=== PATIENT | male | born 1950 | race Caucasian/White ===

== ENCOUNTER 2016-12-24 14:50 | Emergency (ER) | payer BC ==
[~2016-12-24] VITALS: Ht 172.7 cm; Wt 81.0 kg
[~2016-12-24 14:50] MED LIST: ALPR-411 PO; ASPI81TA28 PO; BUPR200T2 PO; CALCTAB5 PO; CARB25TA12 PO; CARB50TA3 PO; CITA20TA9 PO; COEN1CAP PO; FLAXSEED PO; MULT-506 PO; PROBCAP PO; PYRI100T4 PO; ROPI3TAB PO; ZOLP10TA PO; [UNRECOGNIZED DRUG - OTHER] PO
[2016-12-24 15:05] VITALS: TEMP 36.8; Ht 172.7 cm; Wt 81.0 kg
[2016-12-24 15:23] LABS: URINE APPEARANCE CLOUDY (CLEAR); URINE BILIRUBIN NEG (NEG); URINE COLOR DK YELLOW; URINE NITRITE NEG (NEG); URINE PH 6.5 (4.5-7.5); URINE SPECIFIC GRAVITY 1.024 (1.000-1.030); UROBILINOGEN NEG (NEG); ZZUR CULT IF INDIC CLEAN CATCH NO
[2016-12-24 15:31] LABS: MANUAL MICROSCOPIC REQUIRED? NO; REVIEW REQ? NO
[2016-12-24 15:54] LABS: BENZODIAZEPINE, URINE NEG (NEG); COCAINE,URINE NEG (NEG); PHENCYCLIDINE, URINE NEG (NEG)
[2016-12-24 16:07] LABS: BASO ABS # 0.06 K/uL (0-0.2); COMPLETE YES; EOS % 4.9 %; HEMATOCRIT 46.7 % (42-52); IG% 0.2 %; LYMPH % 14.3 %; MEAN CELL VOLUME 88.6 fL (80-100); MEAN CORPUSCULAR HEMOGLOBIN 29.2 pg (25-34); MEAN PLATELET VOLUME 10.2 fL (7.4-10.4); MONO % 10.3 %; NEUT % 69.3 %; PLATELET COUNT 187 K/uL (130-400); RED BLOOD COUNT 5.27 M/uL (4.7-6.1); WHITE BLOOD COUNT 6.31 K/uL (4.8-10.8)
[2016-12-24] MEDS ORDERED: CARB25TA14 PO (16:11)
[2016-12-24] MEDS ORDERED: ROPI5TAB9 PO (16:11)
[2016-12-24 16:28] LABS: BUN/CREATININE RATIO 18.8 (10-20); CALCIUM 8.5 mg/dl (8.5-10.1); CREATININE 0.74 mg/dl (0.60-1.40); POTASSIUM 3.6 mmol/L (3.5-5.1)
[2016-12-24 16:39] LABS: THYROID STIMULATING HORMONE 0.707 uIu/ml (0.300-4.500)
[2016-12-24 16:48] LABS: ACETAMINOPHEN < 2 ug/ml (10-30)
[2016-12-24 20:10] VITALS: BP 92/54; PULSE 67; O2SAT 95
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
[2016-12-31 10:40] LABS: SYNTHETIC CANNABINOIDS QL URIN NEGATIVE (Negative)
== END 2016-12-24 20:11 | disposition home or self-care (01) ==
LOC: EDBD 14:50 → C.EDA 14:52
DX: Z00.8 Encounter for other general examination (principal); F39 Unspecified mood [affective] disorder; R45.4 Irritability and anger; G20 Parkinson's disease

== ENCOUNTER 2017-03-27 00:29 | Emergency (ER) | payer BC ==
[~2017-03-27] VITALS: Ht 172.7 cm; Wt 79.7 kg
[~2017-03-27 00:29] MED LIST changes: -ALPR-411 PO; -BUPR200T2 PO; -CALCTAB5 PO; -CARB25TA12 PO; +CARB25TA14 PO; -CARB50TA3 PO; -CITA20TA9 PO; -FLAXSEED PO; -PROBCAP PO; -PYRI100T4 PO; -ROPI3TAB PO; +ROPI5TAB9 PO; -ZOLP10TA PO; -[UNRECOGNIZED DRUG - OTHER] PO
[2017-03-27 00:36] VITALS: TEMP 36.4; Ht 172.7 cm; Wt 79.7 kg
[2017-03-27] MEDS ORDERED: SODIUM CHLORIDE 0.9% 1000ML 1,000 ML IV STA ×2 (00:38→02:06)
--- NOTE | 2017-03-27 00:43 | EMERGENCY ROOM VISIT NOTE ---
History Report prepared by Adam: Donavon Benton Under the Supervision of: Dr. Patrick Calix M.D. First contact with patient: 00:32 Chief Complaint: FALL Stated Complaint: MULTIPLE FALLS History of Present Illness The patient is a 67 year old male with Parkinson's who presents to the Emergency Room via ELS with complaints of multiple falls that have occurred over the past few weeks. Per EMS, the patient has been having a lot of falls, especially over the past week. He initially was confused and having hallucinations, but is now alert and oriented and answering questions now. His glucose was 106. He was noted to be diaphoretic. The patient states that he feels great currently, but has not been having much of an appetite recently. He says that he did not hit his head on the falls, but did hit his back and has current buttock pain. He denies any chest pain, headaches, or shortness of breath. The patient adds that prior to arrival, he was having hallucinations where he thought people were in his room, and he thought there was a football game going on that is not going on until tomorrow. He notes that he was able to get himself up after his falls. Source of History: patient, EMS Onset: Over past few weeks Position: other (global - falls) Symptom Intensity: multiple falls Associated Symptoms: + diaphoresis, No headache, No chest pain, No SOB Note: Associated symptoms: Buttock pain. Hallucinations prior to arrival. Denies hitting head on falls. Review of Systems See HPI for pertinent positives & negatives. A total of 10 systems reviewed and were otherwise negative. Past Medical & Surgical Medical Problems: (1) Benign essential hypertension (2) Chronic back pain (3) GAIT INSTABILITY (4) INTERMITTENT CONFUSION (5) LEFT GROIN PAIN (6) Parkinson's disease Family History No pertinent family history Social History Smoking Status: Never Smoker Alcohol Use: occasionally Drug Use: none Marital Status: Occupation Status: employed Current/Historical Medications Scheduled Aspirin (Aspirin Ec), 81 MG PO DAILY Carbidopa/Levodopa (Sinemet 25MG/250MG), 1.5 TAB PO QID Coenzyme Q10 (Ubidecarenone) (Co Q10), 1 CAP PO BID Multivitamin (Multivitamin), 1 TAB PO DAILY Ropinirole HCl (Ropinirole HCl), 5 MG PO TIDM Allergies Coded Allergies: No Known Allergies (Unverified , 12/24/16) Physical Exam Vital Signs Date Time Temp Pulse Resp B/P (MAP) Pulse Ox O2 Delivery O2 Flow Rate FiO2 03/27/17 05:21 71 18 126/87 96 03/27/17 04:24 64 20 128/72 94 Room Air 03/27/17 03:29 73 20 106/79 96 Room Air 03/27/17 02:46 71 20 119/69 95 Room Air 03/27/17 01:31 77 20 117/66 95 Room Air 03/27/17 00:50 74 03/27/17 00:36 36.4 76 20 110/70 97 Room Air Physical Exam GENERAL: Patient is dehydrated appearing and in minimal distress. HEENT: No acute trauma, normocephalic atraumatic, mucous membranes dry, no nasal congestion, no scleral icterus. NECK: No stridor, no adenopathy, no meningismus, trachea is midline. LUNGS: No dyspnea. Clear to auscultation and equal bilaterally. No wheeze, no rhonchi. HEART: Regular rate and rhythm. No murmurs, rubs, gallops appreciated. ABDOMEN: Soft, nontender, bowel sounds positive, no masses appreciated, no peritonitis. BACK: No midline tenderness, no CVA tenderness EXTREMITIES: Normal motion all extremities, no cyanosis, no edema. NEUROLOGIC: Awake and answering questions. Chronic movement consistent with severe Parkinsonism. Mild left lower facial droop, easily overcome with voluntary muscles. SKIN: Poor skin turgor. No rash, no jaundice, no diaphoresis. Medical Decision & Procedures ER Provider Diagnostic Interpretation: Radiology results and stated below per my review and radiologist interpretation: CT HEAD: Degraded by motion. 3 apparent mixed attenuation, although predominantly low to isodense, left parietal extra axial hemorrhage measuring about 1 cm in some regions. Approximately 3 mm of [id number] midline shift. Involutional changes. Radiologist: Sarina Oakes M.D. X ray results are stated below per my interpretation: Chest: 1 view: No infiltrate, no effusion, normal cardiac border. Pelvis X-ray: 1 view: No fracture, no dislocation, has lumbar hardware in place with old compression fractures. Extensive arthritic changes. Laboratory Results 03/27/17 00:06 Red Blood Count 5.04, Mean Corpuscular Volume 90.5, Mean Corpuscular Hemoglobin 29.2, Mean Corpuscular Hemoglobin Concent 32.2, Mean Platelet Volume 10.1, Neutrophils (%) (Auto) 60.3, Lymphocytes (%) (Auto) 18.1, Monocytes (%) (Auto) 12.0, Eosinophils (%) (Auto) 8.4, Basophils (%) (Auto) 1.0, Neutrophils # (Auto ) 3.07, Lymphocytes # (Auto) 0.92, Monocytes # (Auto) 0.61, Eosinophils # (Auto ) 0.43, Basophils # (Auto) 0.05 03/27/17 00:06 Test 03/27/17 00:06 03/27/17 01:36 White Blood Count 5.09 K/uL (4.8-10.8) Red Blood Count 5.04 M/uL (4.7-6.1) Hemoglobin 14.7 g/dL (14.0-18.0) Hematocrit 45.6 % (42-52) Mean Corpuscular Volume 90.5 fL (80-100) Mean Corpuscular Hemoglobin 29.2 pg (25-34) Mean Corpuscular Hemoglobin Concent 32.2 g/dl (32-36) Platelet Count 183 K/uL (130-400) Mean Platelet Volume 10.1 fL (7.4-10.4) Neutrophils (%) (Auto) 60.3 % Lymphocytes (%) (Auto) 18.1 % Monocytes (%) (Auto) 12.0 % Eosinophils (%) (Auto) 8.4 % Basophils (%) (Auto) 1.0 % Neutrophils # (Auto) 3.07 K/uL (1.4-6.5) Lymphocytes # (Auto) 0.92 K/uL (1.2-3.4) Monocytes # (Auto) 0.61 K/uL (0.11-0.59) Eosinophils # (Auto) 0.43 K/uL (0-0.5) Basophils # (Auto) 0.05 K/uL (0-0.2) RDW Standard Deviation 41.5 fL (36.4-46.3) RDW Coefficient of Variation 12.5 % (11.5-14.5) Immature Granulocyte % (Auto) 0.2 % Immature Granulocyte # (Auto) 0.01 K/uL (0.00-0.02) Prothrombin Time 10.7 SECONDS (9.0-12.0) Prothromb Time International Ratio 1.0 (0.9-1.1) Activated Partial Thromboplast Time 29.2 SECONDS (21.0-31.0) Partial Thromboplastin Ratio 1.1 Anion Gap 6.0 mmol/L (3-11) Est Creatinine Clear Calc Drug Dose 97.6 ml/min Estimated GFR () 112.7 Estimated GFR (Non- 97.2 BUN/Creatinine Ratio 20.5 (10-20) Calcium Level 8.6 mg/dl (8.5-10.1) Phosphorus Level 3.6 mg/dl (2.5-4.9) Magnesium Level 2.2 mg/dl (1.8-2.4) Total Bilirubin 0.6 mg/dl (0.2-1) Direct Bilirubin mg/dl (0-0.2) Aspartate Amino Transf (AST/SGOT) 24 U/L (15-37) Alanine Aminotransferase (ALT/SGPT) 8 U/L (12-78) Alkaline Phosphatase 74 U/L (45-117) Total Creatine Kinase 206 U/L (39-308) Creatine Kinase MB 5.1 ng/ml (0.5-3.6) Creatine Kinase MB Ratio 2.5 (0-3.0) Troponin I < 0.015 ng/ml (0-0.045) Total Protein 6.8 gm/dl (6.4-8.2) Albumin 3.3 gm/dl (3.4-5.0) Lipase 1280 U/L (73-393) Urine Color YELLOW Urine Appearance CLEAR (CLEAR) Urine pH 5.0 (4.5-7.5) Urine Specific [place] 1.019 (1.000-1.030) Urine Protein NEG (NEG) Urine Glucose (UA) NEG (NEG) Urine Ketones TRACE (NEG) Urine Occult Blood TRACE (NEG) Urine Nitrite NEG (NEG) Urine Bilirubin NEG (NEG) Urine Urobilinogen NEG (NEG) Urine Leukocyte Esterase SMALL (NEG) Urine WBC (Auto) 5-10 /hpf (0-5) Urine RBC (Auto) 5-10 /hpf (0-4) Urine Hyaline Casts (Auto) 5-10 /lpf (0-5) Urine Epithelial Cells (Auto) 10-20 /lpf (0-5) Urine Bacteria (Auto) NEG (NEG) Medications Administered Medications (Trade) Dose Ordered Sig/Jason Route Start Time Stop Time Status Last Admin Dose Admin Sodium Chloride 1,000 ml @ 999 mls/hr Q1H1M STAT IV 03/27/17 00:38 03/27/17 01:38 DC 03/27/17 00:38 999 MLS/HR Sodium Chloride 1,000 ml @ 125 mls/hr Q8H STAT IV 03/27/17 02:06 03/27/17 06:18 DC 03/27/17 02:06 125 MLS/HR ECG Indication: weakness Rate (beats per minute): 79 Rhythm: sinus rhythm, other (poor baseline) Findings: 1st degree AV block, other (nonspecific intraventricular block) ED Course 0033: The patient was evaluated in room C5. A complete history and physical exam was performed. 0038: Ordered NSS 1000 ml @ 999 mls/hr IV. 0123: I reevaluated and updated the patient, and he wants to be transferred to [place]. 0130 :I reevaluated the patient and did a fast ultrasound and placed him in a cervical collar. Fast was negative for any blood. 0143: I discussed the patient with Dr. Renee - [place] trauma surgeon - he accepts the patient in transfer. 0206: I reevaluated the patient and I do not appreciate any further facial droop. He still appears dehydrated. The patient verbally expressed understanding and agreement of the treatment plan. The patient will be evaluated for transferred to [facility]. Ordered NSS 1000 ml @ 125 mls/hr IV. 0305: [place] is bringing an ambulance here. 0402: I reevaluated the patient and he is feeling fine with no concerns. He will now be transferred to [place]. Medical Decision Differential: Sepsis, Infectious (UTI/Pneumonia/Meningitis/etc), Metabolic/ Electrolyte Abnormality, Cardiac, Hepatic, Endocrine, Toxicologic, Neurologic, amongst other pathologies entertained. 67 yr old male arrives via EMS after falling several times at home. Story a bit confusing but seems his left a day or so ago and he has been getting weaker. He is having some hallucinations which he admits. He is severely dehydrated and I suspect he has not been eating/caring for himself. Exam with mild left lower facial droop easily overcome with voluntary muscles, as well as his chronic Parkinson issues. Initially suspected dehydration vs stroke, but broad differential kept and thus sent to CT for head given his falls though he denies hitting his head. CT with subdural and midline shift. On return patient placed in cervical collar, though given his constant movement I do not feel that we would get very good CT imaging of cervical spine to clear, thus will leave collar even though no complaint neck pain (primarily because head bleed). On asa 81mg only and no other blood thinners. Bedside FAST limited to motion though no clear evidence of free fluid. CXR and Pelv xray without injury appreciated. Soft abdomen throughout stay. He is actually looking much improved with initial IV fluid bolus and thus will continue gentle hydration from here out. Modestly elevated Lipase of uncertain etiology as no TTP and no abdominal pain. Notes some low back soreness post fall the other day though this doesn't seem consistent with pancreatitis. May just be dehydration and poor oral intake as cause? Other labs look OK and EKG without acute ischemia. No clear findings of infection. Patient stable, no further neuro issues and interacting normally for himself. He will be transferred to [place] at his request as it is trauma center that we are not. [place] sent their ground crew as out ambulance leaving concurrently with another trauma and other local ambulances busy with football weekend. Head Trauma GCS Score: 15 Medication Reconcilliation Current Medication List: was personally reviewed by me Blood Pressure Screening Patient's blood pressure: Normal blood pressure Consults Time Called: 0140 Consulting Physician: Dr. Thelma Lindsay trauma surgeon Returned Call: 0143 I discussed the patient with Dr. Thelma Lindsay trauma surgeon - he accepts the patient in transfer. Impression Primary Impression: Subdural hematoma Additional Impressions: Midline shift of brain due to hematoma Fall Dehydration Elevated lipase Critical Care I have personally spent greater than 45 minutes of critical care time in the direct management of this patient. This was a life/limb threatening event. This includes time spent evaluating patient, direct bedside care, chart review, placing orders, interpretation of diagnostic studies, discussion with consultants, patient, and family members, as well as other required patient management activities. This 45 minutes is in excess of all separately billable procedures. Scribe Attestation The scribe's documentation has been prepared under my direction and personally reviewed by me in its entirety. I confirm that the note above accurately reflects all work, treatment, procedures, and medical decision making performed by me. Departure Information Dispostion Transfer Acute Care Facility (to [facility]) Referrals Nir Kimbrough D.O.Int.Med. (PCP) Patient Instructions [facility] Problem Qualifiers
[2017-03-27 00:55] LABS: BASO ABS # 0.05 K/uL (0-0.2); COMPLETE YES; EOS % 8.4 %; HEMATOCRIT 45.6 % (42-52); IG% 0.2 %; LYMPH % 18.1 %; LYMPH ABS # 0.92 K/uL (1.2-3.4); MEAN CELL VOLUME 90.5 fL (80-100); MEAN CORPUSCULAR HEMOGLOBIN 29.2 pg (25-34); MEAN CORPUSCULAR HGB CONC 32.2 g/dl (32-36); MEAN PLATELET VOLUME 10.1 fL (7.4-10.4); NEUT % 60.3 %; PLATELET COUNT 183 K/uL (130-400); RED BLOOD COUNT 5.04 M/uL (4.7-6.1); WHITE BLOOD COUNT 5.09 K/uL (4.8-10.8)
[2017-03-27 01:10] LABS: PARTIAL THROMBOPLASTIN RATIO 1.1; PROTHROMBIN TIME (PATIENT) 10.7 SECONDS (9.0-12.0)
[2017-03-27 01:29] LABS: ALKALINE PHOSPHATASE 74 U/L (45-117); ALT/SGPT 8 U/L (12-78); AST/SGOT 24 U/L (15-37); BLOOD UREA NITROGEN 15 mg/dl (7-18); BUN/CREATININE RATIO 20.5 (10-20); CALCIUM 8.6 mg/dl (8.5-10.1); CARBON DIOXIDE 27 mmol/L (21-32); CHLORIDE 108 mmol/L (98-107); CKMB/CK RATIO 2.5 (0-3.0); CREATININE 0.72 mg/dl (0.60-1.40); GLUCOSE 88 mg/dl (70-99); MAGNESIUM 2.2 mg/dl (1.8-2.4); PHOSPHORUS 3.6 mg/dl (2.5-4.9); POTASSIUM 3.8 mmol/L (3.5-5.1); SODIUM 141 mmol/L (136-145)
[2017-03-27 02:15] LABS: MANUAL MICROSCOPIC REQUIRED? NO; REVIEW REQ? NO; URINE APPEARANCE CLEAR (CLEAR); URINE BILIRUBIN NEG (NEG); URINE COLOR YELLOW; URINE NITRITE NEG (NEG); URINE SPECIFIC GRAVITY 1.019 (1.000-1.030); UROBILINOGEN NEG (NEG); ZZUR CULT IF INDIC CLEAN CATCH NO
[2017-03-27 05:21] VITALS: BP 126/87; PULSE 71; O2SAT 96
--- NOTE | 2017-03-27 06:44 | DIAGNOSTIC IMAGING REPORT ---
CHEST ONE VIEW PORTABLE CLINICAL HISTORY: Generalized Weakness TRAUMA COMPARISON STUDY: 03/29/2011 FINDINGS: The cardiac and mediastinal contours remain stable. There is aortic tortuosity/ectasia. There is no focal pulmonary consolidation. There is no failure. There is mild chronic interstitial thickening.[ IMPRESSION: AP portable study. No acute findings. Electronically signed by: Carlos Eduardo Gray M.D. 03/27/2017 6:43 AM Dictated Date/Time: 03/27/2017 6:42 AM
--- NOTE | 2017-03-27 06:48 | DIAGNOSTIC IMAGING REPORT ---
CT HEAD WITHOUT CONTRAST (CT) CLINICAL HISTORY: Multiple falls. Generalized weakness. COMPARISON STUDY: 03/29/2011 TECHNIQUE: Axial CT of the brain is performed from the vertex to the skull base. IV contrast was not administered for this examination. A dose lowering technique was utilized adhering to the principles of ALARA. CT DOSE: 1382.10 mGy.cm FINDINGS: The study is degraded by motion artifact. There is a suspected 12 mm isodense left posterior parietal extra-axial hemorrhage. This is likely subdural. There is 2 mm of left to right midline shift. There is no CT evidence of acute cortical infarction. There is no parenchymal hemorrhage. There are patchy white matter hypodensities likely on a small vessel basis. There is no evidence of pathologic ventricular dilatation. There is no evidence of acute sinusitis IMPRESSION: 1. Technically limited study degraded by motion 2. 12 mm isodense left parietal subdural hematoma Electronically signed by: Carlos Eduardo Gray M.D. 03/27/2017 6:47 AM Dictated Date/Time: 03/27/2017 6:43 AM
--- NOTE | 2017-03-27 06:51 | DIAGNOSTIC IMAGING REPORT ---
PELVIS 1 OR 2 VIEW ROUTINE CLINICAL HISTORY: Pelvic pain status post trauma COMPARISON STUDY: No previous studies for comparison. FINDINGS: There are postsurgical changes in the lumbar spine. There are extensive degenerative changes within the visualized portions of the lumbar spine. There is no SI joint diastases. There is no symphysis diastases. No acute pelvic fractures are visualized. There is bony spurring arising from the iliac wings. There is spurring arising from the left greater trochanter. IMPRESSION: No acute fractures. Electronically signed by: Carlos Eduardo Gray M.D. 03/27/2017 6:50 AM Dictated Date/Time: 03/27/2017 6:49 AM
== END 2017-03-27 05:21 | disposition short-term general hospital (02) ==
LOC: EDBD 00:29 → C.EDC 00:30
DX: S06.5X0A Traumatic subdural hemorrhage without loss of consciousness, initial encounter (principal); G93.5 Compression of brain; W19.XXXA Unspecified fall, initial encounter; Y92.9 Unspecified place or not applicable; E86.0 Dehydration; R74.8 Abnormal levels of other serum enzymes; I10 Essential (primary) hypertension; R41.0 Disorientation, unspecified; G20 Parkinson's disease; Z79.82 Long term (current) use of aspirin; Z79.899 Other long term (current) drug therapy

== ENCOUNTER 2017-07-09 18:04 | Emergency (ER) | payer OTHER ==
[~2017-07-09] VITALS: Ht 172.7 cm; Wt 90.3 kg
[2017-07-09 18:19] VITALS: Ht 172.7 cm; Wt 90.3 kg
[2017-07-09] MEDS ORDERED: MoRPHine SULFATE 4 MG/ML 1 ML CARP\\VIAL IM STA (18:23)
--- NOTE | 2017-07-09 18:28 | EMERGENCY ROOM VISIT NOTE ---
History Report prepared by Adam: Frances Puga Under the Supervision of: Dr. Hemanth Kyle D.O. 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 He was trying to walk to the bathroom from his bedroom. He lost his balance and fell. He reports right rib pain. He denies any head injury. He notes that he has been unable to use his right arm for a couple months. He denies any history of stroke. He has a history of Parkinson's disease. The patient normally uses a walker to ambulate. Source of History: patient Onset: CAMP ATTENDANT Position: other (global) Quality: other (fall) Timing: other (episodic) Associated Symptoms: No headache Note: Pt reports right rib pain. Review of Systems See HPI for pertinent positives & negatives. A total of 10 systems reviewed and were otherwise negative. Past Medical & Surgical Medical Problems: (1) Benign essential hypertension (2) Chronic back pain (3) GAIT INSTABILITY (4) INTERMITTENT CONFUSION (5) LEFT GROIN PAIN (6) Parkinson's disease Family History No pertinent family history Social History Smoking Status: Former Smoker Drug Use: none Marital Status: Current/Historical Medications Scheduled Bupropion (Wellbutrin Sr), 150 MG PO DAILY Carbidopa/Levodopa (Sinemet 25MG/250MG), 1 TAB PO QID Docusate Sodium (Docusate Sodium), 1 CAP PO BID Polyethylene Glycol 3350 (Miralax), 17 GM PO DAILY Senna/Docusate Sod (Senokot S), 1 TAB PO DAILY Zolpidem Tartrate (Ambien), 5 MG PO HS Scheduled PRN Acetaminophen (Tylenol), 500 MG PO Q4H PRN for Pain or Fever Bisacodyl (Bisac-Evac), 10 MG PO DAILY PRN for Constipation Cyclobenzaprine Hcl (Flexeril), 5 MG PO TID PRN for Muscle Spasms Magnesium Hydroxide (Milk Of Magnesia), 30 ML PO DAILY PRN for Constipation Oxycodone Immediate Rel Tab (Roxicodone Ir), 5 MG PO Q4H PRN for Severe Pain Sodium Phosphate/Biphosphate (Fleet Enema), 1 EA OR DAILY PRN for Constipation Allergies Coded Allergies: No Known Allergies (Unverified , 12/24/16) Physical Exam Vital Signs Date Time Temp Pulse Resp B/P (MAP) Pulse Ox O2 Delivery O2 Flow Rate FiO2 07/09/17 18:19 95 18 152/87 98 Room Air Physical Exam CONSTITUTIONAL/VITAL SIGNS: Reviewed / noted above. GENERAL: Non-toxic in appearance. INTEGUMENTARY: Warm, dry, and Rodman. HEAD: Normocephalic. EYES: without scleral icterus or trauma. ENT/OROPHARYNX: clear and moist. LYMPHADENOPATHY/NECK: Is supple without lymphadenopathy or meningismus. RESPIRATORY: Lungs clear and equal. CARDIOVASCULAR: Regular rate and rhythm. GI/ABDOMEN: Soft and nontender. No organomegaly or pulsatile mass. No rebound or guarding. Normal bowel sounds. EXTREMITIES: Warm and well perfused. BACK: No CVA tenderness. NEUROLOGICAL: Intact without focal deficits. PSYCHIATRIC: normal affect. MUSCULOSKELETAL: Normally developed with good muscle tone. Tenderness to palpation of the right lateral and posterior ribs. No obvious trauma. Medical Decision & Procedures ER Provider Diagnostic Interpretation: X ray results and stated below per my interpretation and radiology interpretation. R RIBS UNILATERAL WITH PA CHEST CLINICAL HISTORY: RT SIDED RIB PAIN AFTER FALL trauma. Pain. COMPARISON STUDY: None FINDINGS: Fractures of the right fifth through eighth ribs. No evidence pneumothorax. Findings suggesting mild congestive failure. Mild cardiomegaly. IMPRESSION: 1. Fractures right fifth through eighth ribs. 2. Mild congestive failure. 3. No pneumothorax. The above report was generated using voice recognition software. It may contain grammatical, syntax or spelling errors. Electronically signed by: Fidel Henry M.D. 07/09/2017 7:17 PM Dictated Date/Time: 07/09/2017 7:15 PM Medications Administered Medications (Trade) Dose Ordered Sig/Jason Route Start Time Stop Time Status Last Admin Dose Admin Morphine Sulfate (MoRPHine SULFATE INJ) 4 mg NOW STAT IM 07/09/17 18:23 07/09/17 18:24 DC 07/09/17 18:39 4 MG ED Course 1816: Previous medical records were reviewed. The patient was evaluated in room A9B. A complete history and physical examination was performed. 1822: Morphine Sulfate 4 mg IM. 1924: Dilaudid Inj 1 mg IV. 1928: On reevaluation, the patient is resting comfortably. I discussed the results and findings with the patient. He verbalized agreement of the treatment plan. He was discharged home. Medical Decision Differential includes close head injury, intracranial bleed, facial trauma, cervical spine trauma, chest and thoracic trauma, abdominal and intra-abdominal trauma, spine neurologic trauma, extremity trauma. This is a 67-year-old male who presents to the ED with a chief complaint of a fall and right-sided rib pain. Details listed above. The patient is currently at [facility]. He attempted to get up without assistance. He is supposed to have 2 person assist. The patient has an x-ray that reveals rib fractures #5 through 8 on the right. The patient was given some IM morphine and 1 mg of IM Dilaudid for his pain. He is felt to be stable for discharge back to [facility]. Medication Reconcilliation Current Medication List: was personally reviewed by me Blood Pressure Screening Patient's blood pressure: Elevated blood pressure Blood pressure disposition: Elevated BP felt to be situational Impression Primary Impression: Fall Additional Impression: Multiple fractures of ribs of right side Scribe Attestation The scribe's documentation has been prepared under my direction and personally reviewed by me in its entirety. I confirm that the note above accurately reflects all work, treatment, procedures, and medical decision making performed by me. Departure Information Dispostion Home / Self-Care Prescriptions Oxycodone/Acetaminophen 10MG/325MG (PERCOCET 10MG/325MG) Tab 1 TAB PO Q4H Y for Pain, #30 TAB Prov: Hemanth Kyle D.O. 07/09/17 Referrals Nir Kimbrough D.O. (PCP) Patient Instructions ED Fx Rib, My [facility] Additional Instructions Follow-up with your doctor for further care and evaluation in 1-2 days. Return to the emergency department for worsening or new symptoms or any concerns. You have been examined and treated today on an emergency basis only. This is not a substitute for, or an effort to provide, complete comprehensive medical care. It is impossible to recognize and treat all injuries or illnesses in a single emergency department visit. It is therefore important that you follow up closely with your doctor. Call as soon as possible for an appointment. Percocet as prescribed. No driving within 6 hours of use. Do not take additional Tylenol while taking Percocet. Problem Qualifiers
--- NOTE | 2017-07-09 19:18 | DIAGNOSTIC IMAGING REPORT ---
R RIBS UNILATERAL WITH PA CHEST CLINICAL HISTORY: RT SIDED RIB PAIN AFTER FALL trauma. Pain. COMPARISON STUDY: None FINDINGS: Fractures of the right fifth through eighth ribs. No evidence pneumothorax. Findings suggesting mild congestive failure. Mild cardiomegaly. IMPRESSION: 1. Fractures right fifth through eighth ribs. 2. Mild congestive failure. 3. No pneumothorax. The above report was generated using voice recognition software. It may contain grammatical, syntax or spelling errors. Electronically signed by: Fidel Henry M.D. 07/09/2017 7:17 PM Dictated Date/Time: 07/09/2017 7:15 PM
[2017-07-09] MEDS ORDERED: HYDROmorphone INJ 1 MG/ML SYR IV STA (19:25)
[2017-07-09] MEDS ORDERED: POLY335019 PO (19:33)
[2017-07-09] MEDS ORDERED: ZOLP5TAB PO (19:33)
[2017-07-09] MEDS ORDERED: BUPR-79 PO (19:33)
[2017-07-09] MEDS ORDERED: SENN-65 PO (19:33)
[2017-07-09] MEDS ORDERED: CYCL5TAB PO (19:33)
[2017-07-09] MEDS ORDERED: BISA10SU7 PO (19:33)
[2017-07-09] MEDS ORDERED: SODIENE PR (19:33)
[2017-07-09] MEDS ORDERED: DOCU100C31 PO (19:33)
[2017-07-09] MEDS ORDERED: ACET-1256 PO (19:33)
[2017-07-09] MEDS ORDERED: MOML PO (19:33)
[2017-07-09] MEDS ORDERED: CARB25TA14 PO (19:33)
[2017-07-09] MEDS ORDERED: OXYC-737 PO (19:34)
[2017-07-09] MEDS ORDERED: OXYC-594 PO (19:42)
[2017-07-09] MEDS ORDERED: NURSING VERBAL MED ORDER ONE (19:45)
[2017-07-09 20:32] VITALS: BP 147/94; PULSE 84; O2SAT 99
== END 2017-07-09 20:32 | disposition home or self-care (01) ==
LOC: EDBD 18:04 → C.EDA 18:05
DX: S22.41XA Multiple fractures of ribs, right side, initial encounter for closed fracture (principal); W18.39XA Other fall on same level, initial encounter; Y93.01 Activity, walking, marching and hiking; Y99.8 Other external cause status; I10 Essential (primary) hypertension; G20 Parkinson's disease; Z87.891 Personal history of nicotine dependence; Z79.899 Other long term (current) drug therapy